=== PATIENT | male | born 1990 | race Caucasian/White ===

== ENCOUNTER 2023-12-27 10:05 | Emergency (ER) | payer BC, SELFPAY ==
[2023-12-27 10:14] VITALS: BP 124/68; PULSE 82; RESP 16; TEMP 37.2; O2SAT 100
--- NOTE | 2023-12-27 10:58 | ED.URI ---
HPI - URI/Sore Throat General Chief Complaint: Upper Respiratory Infection Stated Complaint: chills /aches/throat Time Seen by Provider: 12/27/23 10:58 Source: patient and RN notes reviewed Mode of arrival: ambulatory Limitations: no limitations History of Present Illness HPI Narrative: 33 y/o male presented for c/o nasal congestion, sore throat and subjective fever. Onset 2 days. Taking Dayquil. Denies sob, wheezing, n/v/d. MD elicited complaint: cough Related Data Allergies Allergy/AdvReac Type Severity Reaction Status Date / Time No Known Allergies Allergy Verified 12/27/23 10:14 Review of Systems Review of Systems: CONSTITUTIONAL: Endorses chills, sweats, fever EYES: Denies visual changes, redness, or discharge ENT: Reports rhinorrhea, congestion, otalgia, sore throat CARDIOVASCULAR: Denies chest pain, palpitations, edema RESPIRATORY: Reports cough, post nasal drainage. Denies dyspnea GASTROINTESTINAL: Denies abdominal pain, nausea, vomiting, diarrhea SKIN: Denies rash or itching MUSCULOSKELETAL: Denies myalgia NEUROLOGIC: Denies headache Exam Narrative: GENERAL: well-appearing, nontoxic EYES: PERRLA, conjunctivae clear ENT: Mucous membranes moist. nasal congestion. TMs pearly angelo with dull light reflex bilaterally; no tragal tenderness. Oropharynx erythematous without lesions or exudate, no drooling, no hoarseness, no trismus, uvula midline. No tripod positioning, muffled voice, soft palate or pharyngeal wall bulging NECK: Supple. No lymphadenopathy CHEST: Clear to auscultation, breath sounds equal. No wheezing, rhonchi, rales, or stridor. No respiratory distress, speaks in full sentences. HEART: Regular rate and rhythm. No murmur heard. SKIN: Warm, dry, no rash. NEURO: Alert and oriented x3. PSYCH: Normal mood and affect Course Course Emergency Course: Patient is aware of diagnosis, understands and agrees to treatment plan. Anticipatory guidance given. Patient agrees to follow-up as directed and is aware of reasons to seek care at the emergency department. Portions of this record may have been created with voice recognition software Level of Care: Express Care Visit Vital Signs Vital signs: Vital Signs Temperature 99.0 F 12/27/23 10:14 Pulse Rate 82 12/27/23 10:14 Respiratory Rate 16 12/27/23 10:14 Blood Pressure 124/68 12/27/23 10:14 Pulse Oximetry 100 12/27/23 10:14 Oxygen Delivery Room Air 12/27/23 10:14 Temperature 99.0 F 12/27/23 10:14 Pulse Rate 82 12/27/23 10:14 Respiratory Rate 16 12/27/23 10:14 Blood Pressure 124/68 12/27/23 10:14 Pulse Oximetry 100 12/27/23 10:14 Oxygen Delivery Room Air 12/27/23 10:14 reviewed MDM - URI/Sore Throat MDM Narrative Medical decision making narrative: Results of tests reviewed with patient. Discussed physical exam findings. Advised supportive measures and signs/symptoms to go to the ER. Pt is appropriate for outpt treatment and f/u. Differential Diagnosis Differential diagnosis: Likely upper respiratory infection, sinusitis, viral infection, bronchitis, influenza and pharyngitis Lab Data Labs: Lab Results 12/27/23 Range/Units 10:24 POC SARS CoV-2 Ag Negative (Negative) Influenza A Screen Negative Reference Range: Negative Influenza B Screen Negative Reference Range: Negative Strep Screen Presumptive Negative *(Reference Range: Negative)* Discharge Plan Discharge Clinical Impression: Upper respiratory infection Patient Disposition: Home, Self-Care Condition: Stable Instructions: Upper Respiratory Infection (ED) Additional Instructions: Flu and COVID negative. Rapid strep swab was negative today You will be notified in a few days if the culture comes back positive for strep, and marii
== END 2023-12-27 11:10 | disposition home or self-care (01) ==
PROVIDERS: Emergency Provider Nurse Practitioner Family
DX: J06.9 Acute upper respiratory infection, unspecified (principal); Z20.822 Contact with and (suspected) exposure to COVID-19
CPT/HCPCS: 87081; 87426; 87804; 87880; 99213; G0463